=== PATIENT | female | born 1985 | race African-American/Black ===

== ENCOUNTER 2020-12-29 12:03 | Inpatient (IN) | payer SELFPAY ==
[~2020-12-29] VITALS: Ht 172.7 cm; Wt 159.2 kg
[2020-12-29 13:23] LABS: BILIRUBIN,URINE NEGATIVE (NEG); CLARITY,URINE CLEAR; COLOR,URINE YELLOW; NITRITE,URINE NEGATIVE (NEG); PROTEIN,URINE NEGATIVE (NEG-TRACE)
[2020-12-29 13:39] LABS: BACTERIA,URINE FEW /HPF (0-FEW); RBC,URINE >40 /HPF (0-2)
[2020-12-29 13:57] LABS: U PREG PATIENT NEGATIVE (NEG)
[2020-12-29 14:11] LABS: CALCIUM 8.8 mg/dL (8.5-10.1); CREATININE 0.9 mg/dL (0.6-1.0); GFR 87.3; POTASSIUM 4.2 mmol/L (3.5-5.1)
[2020-12-29 14:21] LABS: BASO % 1 % (0-3); EOS # 0.1 x10^3/uL (0.0-0.7); EOS % 3 % (0-3); HEMATOCRIT 24.8 % (36.0-47.0); LYMPH # 2.1 x10^3/uL (1.0-4.8); LYMPH % 45 % (24-48); MEAN CORPUSCULAR HEMOGLOBIN 15 pg (25-35); MEAN CORPUSCULAR HGB CONC 28 g/dL (31-37); MEAN CORPUSCULAR VOLUME 55 fL (79-100); MONO # 0.6 x10^3/uL (0.0-1.1); MONO % 14 % (0-9); NEUT # 1.7 x10^3/uL (1.8-7.7); NEUT % 38 % (31-73); PLATELET COUNT 178 x10^3/uL (140-400); RED BLOOD COUNT 4.53 x10^6/uL (3.50-5.40); RED CELL DISTRIBUTION WIDTH 23.2 % (11.5-14.5); WHITE BLOOD COUNT 4.6 x10^3/uL (4.0-11.0)
[2020-12-29 16:13] LABS: ANISOCYTOSIS MOD; HYPOCHROMIA MARKED; MICROCYTOSIS MARKED; OVALOCYTES FEW; PLT ESTIMATE ADEQUATE (ADEQUATE)
[2020-12-29 16:14] LABS: POIKILOCYTOSIS SLIGHT
--- NOTE | 2020-12-29 16:59 | PHYS DOC ---
Past Medical History Past Medical History: Anemia Past Surgical History: Additional Past Surgical Histo: X 4 Smoking Status: Never Smoker Alcohol Use: Occasionally General Adult EDM: Chief Complaint: DIZZY/LIGHT HEADED HPI: HPI: Patient is a 35 year old female with history of anemia who presents with dizziness, lightheadedness, palpitations that began this morning. Patient s tates that yesterday when she came home from work, her 11-year-old daughter told her that her son had not been seen since 1300. Over the weekend, her son "got into some stuff with some boys," so she became very nervous, vomited and called the police. Her son did return home this morning, so she took him to [facility] and attempted to obtain placement. While she was in the office, she states her "eye s were heavy," she became lightheaded and dizzy. She reports that her blood pressure was elevated at this time. She denies ever having had similar symptoms before. She denies loss of consciousness, fall, or any pain at this time. She states she feels unsafe at home due to her son's potential involvement with gang activity. Patient has no other complaints at this time. Review of Systems: Review of Systems: 12 system ROS negative except as mentioned in HPI. Heart Score: C/O Chest Pain: No Allergies: Allergies: Allergies Coded Allergies Type Severity Reaction Last Updated Verified No Known Drug Allergies 12/29/20 No Physical Exam: PE: Constitutional: Patient is resting in bed and appears notably fatigued. Otherwise patient is obese, no acute distress, non-toxic appearance. Cardiovascular: Heart rate regular rhythm, no murmur. Lungs & Thorax: Bilateral breath sounds clear to auscultation. Abdomen: Bowel sounds normal, soft, no tenderness, no masses, no pulsatile masses. Skin: Warm, dry, no erythema, no rash. Extremities: No tenderness, no cyanosis, no clubbing, ROM intact, no edema. Neurologic: Alert and oriented x3, normal motor function, normal sensory functio n, no focal deficits noted. Psychologic: Affect depressed, good suspect artist, mood "concerned." Current Patient Data: Labs: Laboratory Tests Test 12/29/20 13:05 12/29/20 13:45 Urine Collection Type Unknown Urine Color Yellow Urine Clarity Clear Urine pH 6.0 (<5.0-8.0) Urine Specific [place] 1.020 (1.000-1.030) Urine Protein Negative mg/dL (NEG-TRACE) Urine Glucose (UA) Negative mg/dL (NEG) Urine Ketones (Stick) Negative mg/dL (NEG) Urine Blood Large (NEG) Urine Nitrite Negative (NEG) Urine Bilirubin Negative (NEG) Urine Urobilinogen Dipstick 1.0 mg/dL (0.2 mg/dL) Urine Leukocyte Esterase Negative (NEG) Urine RBC >40 /HPF (0-2) Urine WBC 1-4 /HPF (0-4) Urine Squamous Epithelial Cells Few /LPF Urine Bacteria Few /HPF (0-FEW) Urine Test Negative (NEG) White Blood Count 4.6 x10^3/uL (4.0-11.0) Red Blood Count 4.53 x10^6/uL (3.50-5.40) Hemoglobin 7.0 g/dL (12.0-15.5) *L Hematocrit 24.8 % (36.0-47.0) L Mean Corpuscular Volume 55 fL (79-100) L Mean Corpuscular Hemoglobin 15 pg (25-35) L Mean Corpuscular Hemoglobin Concent 28 g/dL (31-37) L Red Cell Distribution Width 23.2 % (11.5-14.5) H Platelet Count 178 x10^3/uL (140-400) Neutrophils (%) (Auto) 38 % (31-73) Lymphocytes (%) (Auto) 45 % (24-48) Monocytes (%) (Auto) 14 % (0-9) H Eosinophils (%) (Auto) 3 % (0-3) Basophils (%) (Auto) 1 % (0-3) Neutrophils # (Auto) 1.7 x10^3/uL (1.8-7.7) L Lymphocytes # (Auto) 2.1 x10^3/uL (1.0-4.8) Monocytes # (Auto) 0.6 x10^3/uL (0.0-1.1) Eosinophils # (Auto) 0.1 x10^3/uL (0.0-0.7) Basophils # (Auto) 0.0 x10^3/uL (0.0-0.2) Platelet Estimate Adequate (ADEQUATE) Hypochromasia Marked Poikilocytosis Slight Anisocytosis Mod Microcytosis Marked Ovalocytes Few Sodium Level 142 mmol/L (136-145) Potassium Level 4.2 mmol/L (3.5-5.1) Chloride Level 106 mmol/L (98-107) Carbon Dioxide Level 26 mmol/L (21-32) Anion Gap 10 (6-14) Blood Urea Nitrogen 8 mg/dL (7-20) Creatinine 0.9 mg/dL (0.6-1.0) Estimated GFR (Cockcroft-Gault) 87.3 Glucose Level 93 mg/dL (70-99) Calcium Level 8.8 mg/dL (8.5-10.1) Laboratory Tests 12/29/20 13:45 Laboratory Tests 12/29/20 13:45 Vital Signs: Vital Signs Date Time Temp Pulse Resp B/P (MAP) Pulse Ox O2 Delivery O2 Flow Rate FiO2 12/29/20 14:04 82 18 135/73 (93) 100 Room Air 12/29/20 12:05 98.9 98.9 EKG: EKG: EKG Interpreted by Dr. Mcdonald: Regular rate and rhythm 79 bpm with no ectopic beats. No concerning ST-T wave changes. Regular QR interval. Course & Med Decision Making: Course & Med Decision Making Pertinent Labs and Imaging studies reviewed. (See chart for details) Patient reports chronic anemia with iron supplementation twice per day. Due to her critically low hemoglobin combined with symptomatic fatigue and lightheadedness, patient will be given 1 unit red blood cells. Additionally, she will be admitted to the hospital for observation and further anemia work-up. Nessa Disclaimer: Nessa Disclaimer: This electronic medical record was generated, in whole or in part, using a voice recognition dictation system. Departure Departure Impression: Primary Impression: Symptomatic anemia Additional Impressions: Blood hemoglobin level less than 10 grams/deciliter Fatigue associated with anemia Disposition: ADMITTED INPATIENT Admitting Physician: RAMIREZ Villalobos) Referrals: NO PCP (PCP) PRESTON MONTELONGO Dec 29, 2020 16:59
[2020-12-29 17:06] VITALS: BP 132/72
--- NOTE | 2020-12-29 17:11 | PDOC1 ---
History and Physical Date of Admission Date of Admission DATE: 12/29/20 TIME: 16:55 Identification/Chief Complaint Chief Complaint Dizziness Source Source: Patient History of Present Illness History of Present Illness Ms Villalobos is a 35yo female with PMHX CAROLIN who presents to ED via her personal vehicle c/o dizziness and and light headedness starting early in the morning. She had associated palpitations and some dyspnea on exertion. She notes she has been under some stress with her son recently and has been having heavy menstrual flow. She has previously required transfusions and iron infusions in [place] for the same and recently moved to [place], [place] back in June 2020 and was trying to establish primary and Engineering Drawings Checker care at [facility]. Heart rate 84 bpm but upon standing with me increases to 104 bpm blood pressure 162/76 with standing dropped to 138/62. Labs with WBC 4.6, Hb 7 with MCV of 55 platelets 178, NA 142, K4.2, BUN 8, CR 0.9, calcium 8.8, UA bland positive for blood though she is menstruating. Urine negative Admitted for further care. Past Medical History Heme/Onc: Iron deficiency Anemia Past Surgical History Past Surgical History: Family History Family History: Diabetes, High Cholestrol, Hypertension Social History Smoke: <1 pack per day ALCOHOL: occassional Drugs: None Allergies Allergies: Coded Allergies: No Known Drug Allergies (Unverified , 12/29/20) ROS General: YES: Fatigue, Malaise; No: Chills, Night Sweats, Appetite, Other PSYCHOLOGICAL ROS: No: Anxiety, Behavioral Disorder, Concentration difficultie, Decreased libido, Depression, Disorientation, Hallucinations, Hostility, Irritablity, Memory difficulties, Mood Swings, Obsessive thoughts, Physical abuse, Sexual abuse, Sleep disturbances, Suicidal ideation, Other Eyes: No Blurry vision, No Decreased vision, No Double vision, No Dry eyes, No Excessive tearing, No Eye Pain, No Itchy Eyes, No Loss of vision, No Photophobia, No Scotomata, No Uses contacts, No Uses glasses, No Other HEENT: No: Heacaches, Visual Changes, Hearing change, Nasal congestion, Nasal discharge, Oral lesions, Sinus pain, Sore Throat, Epistaxis, Sneezing, Snoring, Tinnitus, Vertigo, Vocal changes, Other ALLERGY AND IMMUNOLOGY: No: Hives, Insect Bite Sensitivity, Itchy/Watery Eyes, Nasal Congestion, Post Nasal Drip, Seasonal Allergies, Other Hematological and Lymphatic: YES: Bleeding Problems, Blood Transfusions, Pallor ; No: Blood Clots, Brusing, Night Sweats, Swollen Lymph Nodes, Other ENDOCRINE: No: Breast Changes, Galactorrhea, Hair Pattern Changes, Hot Flashes, Malaise/lethargy, Mood Swings, Palpitations, Polydipsia/polyuria, Skin Changes, Temperature Intolerance, Unexpected Weight Changes, Other Breast: No New/Changing Breast Lumps, No Nipple changes, No Nipple discharge, No Other Respiratory: YES: Shortness of breath, SOB with excertion; No: Cough, Hemoptysis, Orthopnea, Pleuritic Pain, Sputum Changes, Stridor, Tachypnea, Wheezing, Other Cardiovascular: No Chest Pain, No Palpitations, No Orthopnea, No Paroxysmal Noc. Dyspnea, No Edema, No Lt Headedness, No Other Gastrointestinal: No Nausea, No Vomiting, No Abdominal Pain, No Diarrhea, No Constipation, No Melena, No Hematochezia, No Other Genitourinary: No Dysuria, No Frequency, No Incontinence, No Hematuria, No R etention, No Discharge, No Urgency, No Pain, No Flank Pain, No Other, No , No , No , No , No , No , No Musculoskeletal: No Gait Disturbance, No Joint Pain, No Joint Stiffness, No Joint Swelling, No Muscle Pain, No Muscular Weakness, No Pain In:, No Swelling In:, No Other Neurological: No Behavorial Changes, No Bowel/Bladder ControlChng, No Confusion, No Dizziness, No Gait Disturbance, No Headaches, No Impaired Coord/balance, No Memory Loss, No Numbness/Tingling, No Seizures, No Speech Problems, No Tremors, No Visual Changes, No Weakness, No Other Skin: No Dry Skin, No Eczema, No Hair Changes, No Lumps, No Mole Changes, No Mottling, No Nail Changes, No Pruritus, No Rash, No Skin Lesion Changes, No Other, No Acne Physical Exam General: Alert, Oriented X3, Cooperative, mild distress HEENT: Atraumatic, PERRLA, EOMI, Other (pale mucosa) Lungs: Clear to auscultation, Normal air movement Heart: S1S2, RRR, no thrills, no rubs, no gallops, no murmurs Abdomen: Normal bowel sounds, Soft, No tenderness, No hepatosplenomegaly, No masses Rectal Exam: not examined Extremities: No clubbing, No cyanosis, No edema, Normal pulses, No tenderness/swelling Skin: No rashes, No breakdown, No significant lesion Neuro: Normal gait, Normal speech, Strength at 5/5 X4 ext, Normal tone, Sensation intact, Cranial nerves 3-12 NL, Reflexes 2+ Psych/Mental Status: Mental status NL, Mood NL Vitals Vitals Vital Signs Date Time Temp Pulse Resp B/P (MAP) Pulse Ox O2 Delivery O2 Flow Rate FiO2 12/29/20 14:04 82 18 135/73 (93) 100 Room Air 12/29/20 12:05 98.9 98.9 Labs Labs Laboratory Tests Test 12/29/20 13:05 12/29/20 13:45 Urine Collection Type Unknown Urine Color Yellow Urine Clarity Clear Urine pH 6.0 (<5.0-8.0) Urine Specific [place] 1.020 (1.000-1.030) Urine Protein Negative mg/dL (NEG-TRACE) Urine Glucose (UA) Negative mg/dL (NEG) Urine Ketones (Stick) Negative mg/dL (NEG) Urine Blood Large (NEG) Urine Nitrite Negative (NEG) Urine Bilirubin Negative (NEG) Urine Urobilinogen Dipstick 1.0 mg/dL (0.2 mg/dL) Urine Leukocyte Esterase Negative (NEG) Urine RBC >40 /HPF (0-2) Urine WBC 1-4 /HPF (0-4) Urine Squamous Epithelial Cells Few /LPF Urine Bacteria Few /HPF (0-FEW) Urine Test Negative (NEG) White Blood Count 4.6 x10^3/uL (4.0-11.0) Red Blood Count 4.53 x10^6/uL (3.50-5.40) Hemoglobin 7.0 g/dL (12.0-15.5) Hematocrit 24.8 % (36.0-47.0) Mean Corpuscular Volume 55 fL (79-100) Mean Corpuscular Hemoglobin 15 pg (25-35) Mean Corpuscular Hemoglobin Concent 28 g/dL (31-37) Red Cell Distribution Width 23.2 % (11.5-14.5) Platelet Count 178 x10^3/uL (140-400) Neutrophils (%) (Auto) 38 % (31-73) Lymphocytes (%) (Auto) 45 % (24-48) Monocytes (%) (Auto) 14 % (0-9) Eosinophils (%) (Auto) 3 % (0-3) Basophils (%) (Auto) 1 % (0-3) Neutrophils # (Auto) 1.7 x10^3/uL (1.8-7.7) Lymphocytes # (Auto) 2.1 x10^3/uL (1.0-4.8) Monocytes # (Auto) 0.6 x10^3/uL (0.0-1.1) Eosinophils # (Auto) 0.1 x10^3/uL (0.0-0.7) Basophils # (Auto) 0.0 x10^3/uL (0.0-0.2) Platelet Estimate Adequate (ADEQUATE) Hypochromasia Marked Poikilocytosis Slight Anisocytosis Mod Microcytosis Marked Ovalocytes Few Sodium Level 142 mmol/L (136-145) Potassium Level 4.2 mmol/L (3.5-5.1) Chloride Level 106 mmol/L (98-107) Carbon Dioxide Level 26 mmol/L (21-32) Anion Gap 10 (6-14) Blood Urea Nitrogen 8 mg/dL (7-20) Creatinine 0.9 mg/dL (0.6-1.0) Estimated GFR (Cockcroft-Gault) 87.3 Glucose Level 93 mg/dL (70-99) Calcium Level 8.8 mg/dL (8.5-10.1) Laboratory Tests Test 12/29/20 13:05 12/29/20 13:45 Urine Collection Type Unknown Urine Color Yellow Urine Clarity Clear Urine pH 6.0 (<5.0-8.0) Urine Specific [place] 1.020 (1.000-1.030) Urine Protein Negative mg/dL (NEG-TRACE) Urine Glucose (UA) Negative mg/dL (NEG) Urine Ketones (Stick) Negative mg/dL (NEG) Urine Blood Large (NEG) Urine Nitrite Negative (NEG) Urine Bilirubin Negative (NEG) Urine Urobilinogen Dipstick 1.0 mg/dL (0.2 mg/dL) Urine Leukocyte Esterase Negative (NEG) Urine RBC >40 /HPF (0-2) Urine WBC 1-4 /HPF (0-4) Urine Squamous Epithelial Cells Few /LPF Urine Bacteria Few /HPF (0-FEW) Urine Test Negative (NEG) White Blood Count 4.6 x10^3/uL (4.0-11.0) Red Blood Count 4.53 x10^6/uL (3.50-5.40) Hemoglobin 7.0 g/dL (12.0-15.5) Hematocrit 24.8 % (36.0-47.0) Mean Corpuscular Volume 55 fL (79-100) Mean Corpuscular Hemoglobin 15 pg (25-35) Mean Corpuscular Hemoglobin Concent 28 g/dL (31-37) Red Cell Distribution Width 23.2 % (11.5-14.5) Platelet Count 178 x10^3/uL (140-400) Neutrophils (%) (Auto) 38 % (31-73) Lymphocytes (%) (Auto) 45 % (24-48) Monocytes (%) (Auto) 14 % (0-9) Eosinophils (%) (Auto) 3 % (0-3) Basophils (%) (Auto) 1 % (0-3) Neutrophils # (Auto) 1.7 x10^3/uL (1.8-7.7) Lymphocytes # (Auto) 2.1 x10^3/uL (1.0-4.8) Monocytes # (Auto) 0.6 x10^3/uL (0.0-1.1) Eosinophils # (Auto) 0.1 x10^3/uL (0.0-0.7) Basophils # (Auto) 0.0 x10^3/uL (0.0-0.2) Platelet Estimate Adequate (ADEQUATE) Hypochromasia Marked Poikilocytosis Slight Anisocytosis Mod Microcytosis Marked Ovalocytes Few Sodium Level 142 mmol/L (136-145) Potassium Level 4.2 mmol/L (3.5-5.1) Chloride Level 106 mmol/L (98-107) Carbon Dioxide Level 26 mmol/L (21-32) Anion Gap 10 (6-14) Blood Urea Nitrogen 8 mg/dL (7-20) Creatinine 0.9 mg/dL (0.6-1.0) Estimated GFR (Cockcroft-Gault) 87.3 Glucose Level 93 mg/dL (70-99) Calcium Level 8.8 mg/dL (8.5-10.1) VTE Prophylaxis Ordered VTE Prophylaxis Devices: Yes VTE Pharmacological Prophylaxi: No Assessment/Plan Assessment/Plan A/P: Dizziness - symptomatic anemia. Will transfuse Acute blood loss anemia - symptomatic with ongoing menstrual bleeding, trans fuse, check iron levels. Repeat Hb post- transfusion Dysmenorrhea - will consult Engineering Drawings Checker for further recs. Smokeless tobacco use - dips, offered nicotine patch, counseled for 6 minutes on cessation Morbid obesity - counseled on lifestyle modification. FEN - General diet PPX - ambulatory FULL CODE Dispo - inpatient for above Justifications for Admission Other Justification SHAWN ANDERSON MD Dec 29, 2020 17:11
[2020-12-29] MEDS ORDERED: traMADol 50 MG TABLET PO PRN (17:15)
[2020-12-29] MEDS ORDERED: ONDANSETRON PF 4 MG/2 ML VIAL. IVP PRN (17:15)
[2020-12-29] MEDS ORDERED: ALBUTEROL SULFATE 2.5 MG/3 ML NEBU. NEB PRN (17:15)
[2020-12-29 17:25] VITALS: BP 146/79
[2020-12-29 18:25] VITALS: BP 139/66
[2020-12-29 18:45] VITALS: BP 145/91
--- NOTE | 2020-12-29 19:30 | NUR ---
Patient admitted to room 560, per report, in room at 1840, Plan of care discussed, pt reports, she did have COVID early last year, her blood transfusion had been completed prior to getting to floor, patient expressed that the palms of her hands weren't pale, and to have felt better than has in a number of days, Pt reports is currently menstruating, has also had a tubal ligation as part of her history, recently took antibiotics for a bad tooth'. call light is within reach, monitoring,,
[2020-12-29] MEDS ORDERED: FERR-36 PO (20:25)
[2020-12-29 21:00] VITALS: BP 145/91
[2020-12-29] MEDS: ACETAMINOPHEN 325 MG TABLET. PO PRN (21:11)
[2020-12-29] MEDS ORDERED: ZOLPIDEM 5 MG TABLET. PO PRN (22:15)
[2020-12-29] MEDS ORDERED: NICOTINE 21MG PATCH. TD PRN (22:15)
[2020-12-29 23:00] VITALS: BP 120/63
[2020-12-29] MEDS ORDERED: IRON SUCROSE COMPLEX 400 MG in IV NORMAL SALINE 250ML 250 ML IV ONE (23:00)
[2020-12-30] VITALS (11 sets, daily range): BP systolic 112–153; BP diastolic 39–89
--- NOTE | 2020-12-30 07:28 | NUR ---
Answering service is called , notified of routine consult, to give Dr Moseley the message
[2020-12-30 07:31] LABS: HEMATOCRIT 26.6 % (36.0-47.0); HEMOGLOBIN 7.8 g/dL (12.0-15.5); RED BLOOD COUNT 4.57 x10^6/uL (3.50-5.40); RED CELL DISTRIBUTION WIDTH 24.7 % (11.5-14.5); WHITE BLOOD COUNT 4.6 x10^3/uL (4.0-11.0)
--- NOTE | 2020-12-30 07:38 | PDOC ---
[facility] PROGRESS NOTE Date of Service DOS: DATE: 12/30/20 TIME: 07:38 Chief Complaint Chief Complaint A/P: Dizziness - symptomatic anemia. s/p transfusion Acute blood loss anemia - symptomatic with ongoing menstrual bleeding, transfused, s/p venofer Dysmenorrhea - will consult Track Machine Operator Repairer for further recs. Smokeless tobacco use - dips, offered nicotine patch, counseled for 6 minutes on cessation Morbid obesity - counseled on lifestyle modification. FEN - General diet PPX - ambulatory FULL CODE Dispo - inpatient for above History of Present Illness History of Present Illness Ms Villalobos is a 35yo female with PMHX CAROLIN who presents to ED via her per collin vehicle c/o dizziness and and light headedness starting early in the morning. She had associated palpitations and some dyspnea on exertion. She notes she has been under some stress with her son recently and has been having heavy menstrual flow. She has previously required transfusions and iron infusions in [place] for the same and recently moved to [place], [place] back in June 2020 and was trying to establish primary and Track Machine Operator Repairer care at [facility]. Heart rate 84 bpm but upon standing with me increases to 104 bpm blood pressure 162/76 with standing dropped to 138/62. Labs with WBC 4.6, Hb 7 with MCV of 55 platelets 178, NA 142, K4.2, BUN 8, CR 0.9, calcium 8.8, UA bland positive for blood though she is menstruating. Urine negative Admitted for further care. Dizziness improved. Lightheadedness improved. Hb up to 7.8. Iron profoundly low with elevated TIBC given Venofer. She does have a headache that has remitted with Tylenol this morning. Vitals/I&O Vitals/I&O: Vital Signs Date Time Temp Pulse Resp B/P (MAP) Pulse Ox O2 Delivery O2 Flow Rate FiO2 12/30/20 03:48 98.7 69 18 130/66 (87) 96 98.7 12/29/20 20:30 Room Air I & O 12/29/20 12/29/20 12/30/20 15:00 23:00 07:00 Intake Total 1666 ml 270 ml Output Total 1 ml Balance 1665 ml 270 ml Physical Exam General: Alert, Oriented X3, Cooperative, mild distress Abdomen: Normal bowel sounds, Soft, No tenderness, No hepatosplenomegaly, No masses Extremities: No clubbing, No cyanosis, No edema, Normal pulses, No tenderness/swelling Skin: No rashes, No breakdown, No significant lesion Labs Labs: Laboratory Tests Test 12/29/20 13:05 12/29/20 13:45 12/30/20 06:10 Urine Collection Type Unknown Urine Color Yellow Urine Clarity Clear Urine pH 6.0 (<5.0-8.0) Urine Specific [place] 1.020 (1.000-1.030) Urine Protein Negative mg/dL (NEG-TRACE) Urine Glucose (UA) Negative mg/dL (NEG) Urine Ketones (Stick) Negative mg/dL (NEG) Urine Blood Large (NEG) Urine Nitrite Negative (NEG) Urine Bilirubin Negative (NEG) Urine Urobilinogen Dipstick 1.0 mg/dL (0.2 mg/dL) Urine Leukocyte Esterase Negative (NEG) Urine RBC >40 /HPF (0-2) Urine WBC 1-4 /HPF (0-4) Urine Squamous Epithelial Cells Few /LPF Urine Bacteria Few /HPF (0-FEW) Urine Test Negative (NEG) White Blood Count 4.6 x10^3/uL (4.0-11.0) 4.6 x10^3/uL (4.0-11.0) Red Blood Count 4.53 x10^6/uL (3.50-5.40) 4.57 x10^6/uL (3.50-5.40) Hemoglobin 7.0 g/dL (12.0-15.5) 7.8 g/dL (12.0-15.5) Hematocrit 24.8 % (36.0-47.0) 26.6 % (36.0-47.0) Mean Corpuscular Volume 55 fL (79-100) 58 fL (79-100) Mean Corpuscular Hemoglobin 15 pg (25-35) 17 pg (25-35) Mean Corpuscular Hemoglobin Concent 28 g/dL (31-37) 29 g/dL (31-37) Red Cell Distribution Width 23.2 % (11.5-14.5) 24.7 % (11.5-14.5) Platelet Count 178 x10^3/uL (140-400) 180 x10^3/uL (140-400) Neutrophils (%) (Auto) 38 % (31-73) Lymphocytes (%) (Auto) 45 % (24-48) Monocytes (%) (Auto) 14 % (0-9) Eosinophils (%) (Auto) 3 % (0-3) Basophils (%) (Auto) 1 % (0-3) Neutrophils # (Auto) 1.7 x10^3/uL (1.8-7.7) Lymphocytes # (Auto) 2.1 x10^3/uL (1.0-4.8) Monocytes # (Auto) 0.6 x10^3/uL (0.0-1.1) Eosinophils # (Auto) 0.1 x10^3/uL (0.0-0.7) Basophils # (Auto) 0.0 x10^3/uL (0.0-0.2) Platelet Estimate Adequate (ADEQUATE) Hypochromasia Marked Poikilocytosis Slight Anisocytosis Mod Microcytosis Marked Ovalocytes Few Sodium Level 142 mmol/L (136-145) Potassium Level 4.2 mmol/L (3.5-5.1) Chloride Level 106 mmol/L (98-107) Carbon Dioxide Level 26 mmol/L (21-32) Anion Gap 10 (6-14) Blood Urea Nitrogen 8 mg/dL (7-20) Creatinine 0.9 mg/dL (0.6-1.0) Estimated GFR (Cockcroft-Gault) 87.3 Glucose Level 93 mg/dL (70-99) Calcium Level 8.8 mg/dL (8.5-10.1) Iron Level 13 ug/dL (50-170) Total Iron Binding Capacity 464 ug/dL (250-450) Iron Saturation 3 % (15-34) Thyroid Stimulating Hormone (TSH) 4.548 uIU/mL (0.358-3.74) Assessment and Plan Assessmemt and Plan Problems Medical Problems: (1) Blood hemoglobin level less than 10 grams/deciliter Status: Acute (2) Fatigue associated with anemia Status: Acute (3) Symptomatic anemia Status: Acute Comment Review of Relevant I have reviewed the following items romeo (where applicable) has been applied. Medications: Current Medications Medications (Trade) Dose Ordered Sig/Leah Route PRN Reason Start Time Stop Time Status Last Admin Dose Admin Acetaminophen (Tylenol) 650 mg PRN Q6HRS PRN PO MILD PAIN / TEMP > 100.3'F 12/29/20 17:15 12/29/20 21:11 Iron Sucrose 400 mg/Sodium Chloride 270 ml @ 90 mls/hr 1X ONCE IV 12/29/20 23:00 12/30/20 01:59 DC 12/29/20 23:46 Justifications for Admission Other Justification SHAWN ANDERSON MD Dec 30, 2020 07:38
[2020-12-30] MEDS: ACETAMINOPHEN 325 MG TABLET. PO PRN (08:31)
[2020-12-30] MEDS ORDERED: FLU VACC QUAD 21-22 (6MOS+) PF 0.5 ML SYRINGE. VAX IM ONE (09:00)
--- NOTE | 2020-12-30 13:07 | NUR ---
SS following for discharge planning. SS reviewed pt chart and discussed with pt RN. Pt is from home and is currently on room air. Pt received blood and iron yesterday. Dr. Moseley consulted. Discharge plan is currently to home when medically ready for discharge. SS will continue to follow for discharge planning.
[2020-12-30] MEDS ORDERED: IRON SUCROSE COMPLEX 400 MG in IV NORMAL SALINE 250ML 250 ML IV ONE (14:30)
--- NOTE | 2020-12-30 15:36 | CONS ---
DATE OF CONSULTATION: 12/30/2020 HISTORY OF PRESENT ILLNESS: This patient is a 35-year-old -[place] lady who is a 4, para 4, admitted to the hospital for anemia and she has had previous 4 sections and does have a history of having heavy bleeding with the menstrual period and has had chronic anemia before and she also has had a LEEP procedure of the cervix in the past and at the present time, she has got scant vaginal bleeding, but she does have bleeding at this point and her hemoglobin was 7 on admission, it increased with the 1 unit of blood at this time. PHYSICAL EXAMINATION: Reveals VITAL SIGNS: Being stable. HEAD, EYES, EARS, NOSE, THROAT: Within normal limits. ABDOMEN: Feels soft. PELVIC: Shows external genitalia being normal. Cervical os is closed. On bimanual exam, uterus feels bulky. No adnexal masses are palpable. She does have mild vaginal bleeding at this time. IMPRESSION: Menorrhagia, dysfunctional uterine bleeding, chronic anemia, obesity. RECOMMENDATION: Would be 150 mg Depo-Provera IM to decrease the vaginal bleeding and pelvic ultrasound to rule out uterine fibroids and we will give one more unit of blood to increase her hemoglobin to be stable. Thank you for giving me the opportunity to participate in the care and management of this patient. MARITA DR: Yoanna TID: [id number]
[2020-12-30] MEDS ORDERED: medroxyPROGESTERone IM 150 MG/ML VIAL. IM ONE (16:00)
--- NOTE | 2020-12-30 23:45 | NUR ---
1 unit of PRBC's completed. No signs or symptoms of a reaction noticed. Will continue to monitor.
[2020-12-31 03:44] VITALS: BP 106/59
--- NOTE | 2020-12-31 06:15 | RAD ---
US PELVIS W/TV History: Reason: Pain/ Spl. Instructions: / History: Comparison: None Technique: Grayscale and color Doppler imaging of the pelvis was performed using transabdominal and t ransvaginal technique. Findings: The uterus measures 10.6 x 7.9 x 6.0 cm. Uterus has an unremarkable appearance. The endometrial str ipe measures 6 mm. Right ovary measures 2.8 x 3.0 x 1.8 cm. Normal Doppler flow to the right ovary. Left ovary left ovary not identified due to positioning and overlying structures. IMPRESSION: 1. Unremarkable pelvic ultrasound. Electronically signed by: Jacobo Moseley DO (12/31/2020 6:13 AM) [facility]
[2020-12-31 07:00] VITALS: BP 147/79
[2020-12-31 08:08] LABS: HEMATOCRIT 27.9 % (36.0-47.0); HEMOGLOBIN 8.2 g/dL (12.0-15.5); RED BLOOD COUNT 4.67 x10^6/uL (3.50-5.40); RED CELL DISTRIBUTION WIDTH 27.1 % (11.5-14.5); WHITE BLOOD COUNT 7.1 x10^3/uL (4.0-11.0)
[2020-12-31 11:00] VITALS: BP 173/87
--- NOTE | 2020-12-31 11:14 | NUR ---
SS following up with discharge planning. SS reviewed pt chart and discussed with pt RN. Pt is from home and is currently on room air. Discharge plan is currently to home when medically ready for discharge. SS will continue to follow for discharge planning.
--- NOTE | 2020-12-31 11:22 | PDOC ---
[employer] PROGRESS NOTE Date of Service DOS: DATE: 12/31/20 TIME: 11:15 Chief Complaint Chief Complaint A/P: Dizziness - symptomatic anemia. s/p transfusion Acute blood loss anemia - symptomatic with ongoing menstrual bleeding, transfused, s/p venofer Dysmenorrhea - will consult Telegraph Editor for further recs. Smokeless tobacco use - dips, offered nicotine patch, counseled for 6 minutes on cessation Morbid obesity - counseled on lifestyle modification. Headache - no history of headaches previously, likely nicotine withdrawal FEN - General diet PPX - ambulatory FULL CODE Dispo - inpatient for above History of Present Illness History of Present Illness Ms Villalobos is a 35yo female with PMHX CAROLIN who presents to ED via her personal vehicle c/o dizziness and and light headedness starting early in the morning. She had associated palpitations and some dyspnea on exertion. She notes she has been under some stress with her son recently and has been having heavy menstrual flow. She has previously required transfusions and iron infusions in [place] for the same and recently moved to [place], [place] back in June 2020 and was trying to establish primary and Telegraph Editor care at [facility]. Heart rate 84 bpm but upon standing with me increases to 104 bpm blood pressure 162/76 with standing dropped to 138/62. Labs with WBC 4.6, Hb 7 with MCV of 55 platelets 178, NA 142, K4.2, BUN 8, CR 0.9, calcium 8.8, UA bland positive for blood though she is menstruating. Urine negative Admitted for further care. 12/30: Dizziness improved. Lightheadedness improved, but still orthostatic. Hb up to 7.8. Iron profoundly low with elevated TIBC given Venofer. She does have a headache that has remitted with Tylenol this morning. Seen by Telegraph Editor, started on 150mg depoprovera and given 1u PRBC additional transfusion. Hb 8.2. Feeling tired but improved. Still with headache. Has not had nicotine replacement therapy Vitals/I&O Vitals/I&O: Vital Signs Date Time Temp Pulse Resp B/P (MAP) Pulse Ox O2 Delivery O2 Flow Rate FiO2 12/31/20 08:00 Room Air 12/31/20 07:00 98.6 72 16 147/79 (101) 96 98.6 I & O 12/30/20 12/30/20 12/31/20 15:00 23:00 07:00 Intake Total 400 ml 320 ml Output Total 1 ml 1 ml Balance 399 ml 319 ml Physical Exam General: Alert, Oriented X3, Cooperative, mild distress Abdomen: Normal bowel sounds, Soft, No tenderness, No hepatosplenomegaly, No masses Extremities: No clubbing, No cyanosis, No edema, Normal pulses, No tenderness/swelling Skin: No rashes, No breakdown, No significant lesion Labs Labs: Laboratory Tests Test 12/31/20 06:50 White Blood Count 7.1 x10^3/uL (4.0-11.0) Red Blood Count 4.67 x10^6/uL (3.50-5.40) Hemoglobin 8.2 g/dL (12.0-15.5) Hematocrit 27.9 % (36.0-47.0) Mean Corpuscular Volume 60 fL (79-100) Mean Corpuscular Hemoglobin 18 pg (25-35) Mean Corpuscular Hemoglobin Concent 30 g/dL (31-37) Red Cell Distribution Width 27.1 % (11.5-14.5) Platelet Count 177 x10^3/uL (140-400) Assessment and Plan Assessmemt and Plan Problems Medical Problems: (1) Blood hemoglobin level less than 10 grams/deciliter Status: Acute (2) Fatigue associated with anemia Status: Acute (3) Symptomatic anemia Status: Acute Comment Review of Relevant I have reviewed the following items romeo (where applicable) has been applied. Medications: Current Medications Medications (Trade) Dose Ordered Sig/Leah Route PRN Reason Start Time Stop Time Status Last Admin Dose Admin Iron Sucrose 400 mg/Sodium Chloride 270 ml @ 90 mls/hr 1X ONCE IV 12/30/20 14:30 12/30/20 17:29 DC 12/30/20 15:08 Medroxyprogesterone Acetate (Depo-Provera Im) 150 mg 1X ONCE IM 12/30/20 16:00 12/30/20 16:01 DC 12/30/20 16:28 Justifications for Admission Other Justification SHAWN ANDERSON MD Dec 31, 2020 11:22
--- NOTE | 2020-12-31 11:23 | PDOC3 ---
Discharge Summary Visit Information Date of Admission: Dec 29, 2020 Date of Discharge: Dec 31, 2020 Admitting Diagnosis: Symptomatic anemia Final Diagnosis Problems Medical Problems: (1) Blood hemoglobin level less than 10 grams/deciliter Status: Acute (2) Fatigue associated with anemia Status: Acute (3) Symptomatic anemia Status: Acute Brief Hospital Course Allergies Allergies Coded Allergies Type Severity Reaction Last Updated Verified No Known Drug Allergies 12/29/20 No Vital Signs Vital Signs Date Time Temp Pulse Resp B/P (MAP) Pulse Ox O2 Delivery O2 Flow Rate FiO2 12/31/20 08:00 Room Air 12/31/20 07:00 98.6 72 16 147/79 (101) 96 98.6 Lab Results Laboratory Tests Test 12/29/20 13:05 12/29/20 13:45 12/30/20 06:10 12/31/20 06:50 Urine Collection Type Unknown Urine Color Yellow Urine Clarity Clear Urine pH 6.0 (<5.0-8.0) Urine Specific Priddy 1.020 (1.000-1.030) Urine Protein Negative mg/dL (NEG-TRACE) Urine Glucose (UA) Negative mg/dL (NEG) Urine Ketones (Stick) Negative mg/dL (NEG) Urine Blood Large (NEG) Urine Nitrite Negative (NEG) Urine Bilirubin Negative (NEG) Urine Urobilinogen Dipstick 1.0 mg/dL (0.2 mg/dL) Urine Leukocyte Esterase Negative (NEG) Urine RBC >40 /HPF (0-2) Urine WBC 1-4 /HPF (0-4) Urine Squamous Epithelial Cells Few /LPF Urine Bacteria Few /HPF (0-FEW) Urine Test Negative (NEG) White Blood Count 4.6 x10^3/uL (4.0-11.0) 4.6 x10^3/uL (4.0-11.0) 7.1 x10^3/uL (4.0-11.0) Red Blood Count 4.53 x10^6/uL (3.50-5.40) 4.57 x10^6/uL (3.50-5.40) 4.67 x10^6/uL (3.50-5.40) Hemoglobin 7.0 g/dL (12.0-15.5) 7.8 g/dL (12.0-15.5) 8.2 g/dL (12.0-15.5) Hematocrit 24.8 % (36.0-47.0) 26.6 % (36.0-47.0) 27.9 % (36.0-47.0) Mean Corpuscular Volume 55 fL (79-100) 58 fL (79-100) 60 fL (79-100) Mean Corpuscular Hemoglobin 15 pg (25-35) 17 pg (25-35) 18 pg (25-35) Mean Corpuscular Hemoglobin Concent 28 g/dL (31-37) 29 g/dL (31-37) 30 g/dL (31-37) Red Cell Distribution Width 23.2 % (11.5-14.5) 24.7 % (11.5-14.5) 27.1 % (11.5-14.5) Platelet Count 178 x10^3/uL (140-400) 180 x10^3/uL (140-400) 177 x10^3/uL (140-400) Neutrophils (%) (Auto) 38 % (31-73) Lymphocytes (%) (Auto) 45 % (24-48) Monocytes (%) (Auto) 14 % (0-9) Eosinophils (%) (Auto) 3 % (0-3) Basophils (%) (Auto) 1 % (0-3) Neutrophils # (Auto) 1.7 x10^3/uL (1.8-7.7) Lymphocytes # (Auto) 2.1 x10^3/uL (1.0-4.8) Monocytes # (Auto) 0.6 x10^3/uL (0.0-1.1) Eosinophils # (Auto) 0.1 x10^3/uL (0.0-0.7) Basophils # (Auto) 0.0 x10^3/uL (0.0-0.2) Platelet Estimate Adequate (ADEQUATE) Hypochromasia Marked Poikilocytosis Slight Anisocytosis Mod Microcytosis Marked Ovalocytes Few Sodium Level 142 mmol/L (136-145) Potassium Level 4.2 mmol/L (3.5-5.1) Chloride Level 106 mmol/L (98-107) Carbon Dioxide Level 26 mmol/L (21-32) Anion Gap 10 (6-14) Blood Urea Nitrogen 8 mg/dL (7-20) Creatinine 0.9 mg/dL (0.6-1.0) Estimated GFR (Cockcroft-Gault) 87.3 Glucose Level 93 mg/dL (70-99) Calcium Level 8.8 mg/dL (8.5-10.1) Iron Level 13 ug/dL (50-170) Total Iron Binding Capacity 464 ug/dL (250-450) Iron Saturation 3 % (15-34) Thyroid Stimulating Hormone (TSH) 4.548 uIU/mL (0.358-3.74) Laboratory Tests Test 12/31/20 06:50 White Blood Count 7.1 x10^3/uL (4.0-11.0) Red Blood Count 4.67 x10^6/uL (3.50-5.40) Hemoglobin 8.2 g/dL (12.0-15.5) Hematocrit 27.9 % (36.0-47.0) Mean Corpuscular Volume 60 fL (79-100) Mean Corpuscular Hemoglobin 18 pg (25-35) Mean Corpuscular Hemoglobin Concent 30 g/dL (31-37) Red Cell Distribution Width 27.1 % (11.5-14.5) Platelet Count 177 x10^3/uL (140-400) Brief Hospital Course Ms Villalobos is a 35yo female with PMHX CAROLIN who presents to ED via her personal vehicle c/o dizziness and and light headedness starting early in the morning. She had associated palpitations and some dyspnea on exertion. She notes she has been under some stress with her son recently and has been having heavy menstrual flow. She has previously required transfusions and iron infusions in [place] for the same and recently moved to [place], [place] back in June 2020 and was trying to establish primary and Clinical Informatics Spec care at [facility] [place]. Heart rate 84 bpm but upon standing with me increases to 104 bpm blood pressure 162/76 with standing dropped to 138/62. Labs with WBC 4.6, Hb 7 with MCV of 55 platelets 178, NA 142, K4.2, BUN 8, CR 0.9, calcium 8.8, UA bland positive for blood though she is menstruating. Urine negative Admitted for further care. 12/30: Dizziness improved. Lightheadedness improved, but still orthostatic. Hb up to 7.8. Iron profoundly low with elevated TIBC given Venofer. She does have a headache that has remitted with Tylenol this morning. Seen by Clinical Informatics Spec, started on 150mg depoprovera and given 1u PRBC additional transfusion. Hb 8.2. Feeling tired but improved. Still with headache. Has not had nicotine replacement therapy Consults gynecology Problem list: Dizziness - symptomatic anemia. s/p transfusion Acute blood loss anemia - symptomatic with ongoing menstrual bleeding, transfused, s/p venofer and 2 unit PRBC Dysmenorrhea - will consult Clinical Informatics Spec for further recs. Smokeless tobacco use - dips, offered nicotine patch, counseled for 6 minutes on cessation Morbid obesity - counseled on lifestyle modification. Headache - no history of headaches previously, likely nicotine withdrawal Greater than 30 minutes spent on d/c Discharge Information Condition at Discharge: Improved Follow Up: Weeks Disposition/Orders: D/C to Home Scheduled Ferrous Sulfate (Iron) 325 Mg Tablet, 1 TAB PO BID for anemia for 30 Days, #60 Ref 0 (Reported) Entered as Reported by: SARAH LOCKWOOD on 12/29/202024 Last Action: New Order on 12/29/202024 by SARAH LOCKWOOD Justicifation of Admission Dx: Justifications for Admission: Justification of Admission Dx: Yes SHAWN ANDERSON MD Dec 31, 2020 11:23
[2020-12-31] MEDS ORDERED: ASA/APAP/CAFFEINE 250/250/65MG TABLET. PO PRN (11:30)
--- NOTE | 2020-12-31 16:39 | NUR ---
Discharge Note: [facility] Discharge instructions and discharge home medications reviewed with the patient and a copy given. All questions have been answered and understanding verbalized. The following instructions and handouts were given: Ferrous sulfate daily Follow up with dock superintendent for further eval and management of DUB. Follow up with PCP in weeks Handout on CAROLIN, transfusion, DUB. Discontinued lines and drains: peripheral IV intact, patient tolerated removal, no complications noted Patient discharged to home with self care, ambulatory on RA at 1545
== END 2020-12-31 15:45 | disposition home or self-care (01) | DRG 760 ==
LOC: ER 12:03 → 5 SOUTH 16:55
PROVIDERS: ADMIT Internal Medicine; ATTEND Internal Medicine
PROC: 30233N1 Transfusion of Nonautologous Red Blood Cells into Peripheral Vein, Percutaneous Approach (ICD-10-PCS; principal; 2020-12-29)
DX: N93.8 Other specified abnormal uterine and vaginal bleeding (principal); D62 Acute posthemorrhagic anemia; F17.213 Nicotine dependence, cigarettes, with withdrawal; N94.6 Dysmenorrhea, unspecified; Z83.3 Family history of diabetes mellitus; Z98.891 History of uterine scar from previous surgery
CPT/HCPCS: 36415; 36430; 76830; 76856; 80048; 81001; 81025; 83540; 83550; 84443; 85025; 85027; 86850; 86900; 86901; 86920; 90471; 90686; J1050; J1756; J7050; P9016; 99285-25; G0378; J7030